=== PATIENT | female | born 1970 | race Caucasian/White ===

== ENCOUNTER 2022-11-02 17:20 | Emergency (ER) | payer OTHER, SELFPAY ==
--- NOTE | ~2022-11-02 | CT_ITS ---
EXAMINATION: CT brain wo con DATE: 11/02/2022 18:12 INDICATION: aloc . TECHNIQUE: Computed tomography (CT) of the head was performed without intravenous contrast. The mA wa s adjusted according to patient size. Iterative reconstruction technique was employed. The dose-lengt h product was 983.67 mGy-cm. COMPARISON: None. FINDINGS: Moderate motion artifact was present requiring additional imaging, with mild persistent motion artifa ct. No acute intracranial hemorrhage or extra-axial fluid collection. No hydrocephalus, mass, or herniation. Pituitary enlargement. No acute ischemic infarct. Unremarkable dural venous sinus attenuation. No acute osseous abnormality. The aerated spaces are clear. IMPRESSION: No acute intracranial process. Pituitary enlargement, consider outpatient MR of the pituitary for fur ther evaluation Reviewed, dictated and finalized at location K. IMPRESSION: No acute intracranial process. Pituitary enlargement, consider outpatient MR of the pituitary for further evaluation
[2022-11-02 17:29] VITALS: TEMP 36.5
--- NOTE | 2022-11-02 17:34 | ECG_ITS ---
Measurements Intervals [place] Rate: 68 P: 45 IA: 235 QRS: 55 QRSD: 97 T: 65 QT: 407 QTc: 436 Interpretive Statements SINUS RHYTHM WITH FIRST DEGREE AV BLOCK NO PREVIOUS ECG AVAILABLE FOR COMPARISON Electronically Signed On 11-03-2022 12:52:00 CDT by Jovanni Levine M.D.
[2022-11-02 17:56] LABS: Basophils Absolute Auto 0.1 K/mm3 (0.0-0.1); Basophils Percent Auto 0.6 % (0.2-1.2); Eosinophils Absolute Auto 0.2 K/mm3 (0-0.3); Eosinophils Percent Auto 1.8 % (0-4.4); Hemoglobin 13.2 g/dL (12.0-15.0); Immature Granulocyte Absolute 0.03 K/mm3 (0.00-0.031); Immature Granulocyte Percent A 0.3 % (0-0.5); Lymphocytes Absolute Auto 2.58 K/mm3 (0.9-3.2); Lymphocytes Percent Auto 23.6 % (18.3-44.2); Mean Corpuscular HGB Conc 33.8 g/dl (32-36); Mean Corpuscular Hemoglobin 33.4 pg (26-34); Mean Corpuscular Volume 98.7 fl (80-100); Mean Platelet Volume 10.2 fl (7.4-10.4); Monocytes Absolute Auto 1.2 K/mm3 (0.1-0.6); Neutrophils Absolute Auto 6.9 K/mm3 (1.3-6.7); Neutrophils Percent Auto 62.7 % (45.5-73.1); Platelet Count Result 306 k/mm3 (150-375); Red Blood Count 3.95 M/mm3 (4.2-5.4); Red Cell Distribution Width 12.3 % (11.5-14.5)
[2022-11-02 18:08] LABS: Alanine Aminotransferase 34 U/L (6-35); Albumin Level 4.9 g/dL (3.5-5.1); Alkaline Phosphatase 80 U/L (38-126); Anion Gap 14 mmol/L (8-16); Aspartate Amino Transferase 42 U/L (14-36); Bilirubin,Total 0.4 mg/dL (0.2-1.3); Blood Urea Nitrogen 17 mg/dL (7-17); Calcium 9.3 mg/dL (8.4-10.2); Carbon Dioxide 24 mmol/L (22-30); Chloride 101 mmol/L (98-107); Estimated Glomerular Filt Rate 58; Glucose 73 mg/dL (65-110); Potassium 3.3 mmol/L (3.4-5.0); Sodium 139 mmol/L (137-145)
[2022-11-02 18:22] LABS: Lactic Acid Reflex 5.1 mmol/L (0.7-2.0)
[2022-11-02 18:29] LABS: Ethanol 407 mg/dL (<10)
--- NOTE | 2022-11-02 19:30 | PC.NURSE ---
Addendum entered by Jesús Hudson RN 11/02/22 19:56: Patient had slid herself to the edge of bed and once she was helped back to bed the patient began getting combative with nursing and tech staff. Patient was then put into soft restraints. Original Note: Patient slid herself to the edge
[2022-11-02] MEDS: OLANZapine 10 MG, WATER, STERILE FOR INJECTION 2.1 ML IM (19:39)
--- NOTE | 2022-11-02 20:00 | PC.NURSE ---
Patient yelling in room, was able to get out of one of the soft restraints and attempting to swing and hit her arms against the rails of the stretcher. This nurse and 2 techs went into room to assist patient back into bed and patient became more aggressive and verbally assaulting staff as well as attempting to harm staff by hitting, kicking, spitting and biting. More staff came to assist patient and patient had pulled out IV. ERP notified and verbal orders obtained to give meds. Patient continued to be verbally aggressive, and attempting to harm staff. Patient placed back in soft restraints.
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
[2022-11-02] MEDS: LORazepam INJ (*CRX) 2 MG/ML VIAL IV PUSH (20:15)
[2022-11-02] MEDS: SODIUM CHLORIDE 0.9% IV 1,000 ML 999 ML IV CONT (20:38)
[2022-11-02 20:54] LABS: Reflex Lactic Acid Yes or No Add Lactic
--- NOTE | 2022-11-02 20:58 | PC.NURSE ---
Per Dr. Allen wait until 22:00 to collect the ethanol and lactic
[2022-11-02 21:31] VITALS: PULSE 76; RESP 16; O2SAT 94; O2SAT 95
[2022-11-02 22:55] VITALS: PULSE 73; RESP 14; O2SAT 100
[2022-11-02 22:55] LABS: Lactic Acid 1.8 mmol/L (0.7-2.0)
[2022-11-02 23:41] LABS: Ethanol 338 mg/dL (<10)
[2022-11-02 23:42] LABS: Acetaminophen < 10 ug/mL (10-30); Salicylate < 1.0 mg/dL (2-20)
[2022-11-03] MEDS: LORazepam INJ (*CRX) 2 MG/ML VIAL IV PUSH (00:45)
--- NOTE | 2022-11-03 00:45 | PC.NURSE ---
Patient yelling and thrashing and screaming in room. Patient screaming I want to fucking , I don't want to live anymore!! Patient trashing and attempting to hit, kick, spit and bite at staff. Attempted to redirect patient, but patient kept on yelling and screaming let me out of this fucking place, they're trying to kill me! I wan't to fucking !!! Patient continues to thrash, yelling and attemping to harm staff. Security at bedside with 2 other RNs, KRISTAL gonsales and .
[2022-11-03] MEDS: HALOPERIDOL LACTATE 5 MG/ML VIAL IM (01:01)
--- NOTE | 2022-11-03 01:03 | PC.NURSE ---
Patient awoke and became violent. Started trying to hit, bite, and spit at staff. 2mg Ativan IVP given per Dr. Bailey via verbal read back order. Patient continues to make threats towards staff.
[2022-11-03 01:08] VITALS: O2SAT 98
--- NOTE | 2022-11-03 02:23 | PC.NURSE ---
Patients bed changed, placed in new gown, blanket given. Patient still aggressive, security at bedside to assist with linen change.
[2022-11-03 02:37] LABS: Amphetamine Screen Urine Negative (Negative); Barbiturate Screen Urine Negative (Negative); Benzodiazepines Screen Urine Negative (Negative); Cannabinoid Screen Urine Positive (Negative); Cocaine Screen Urine Negative (Negative); Methadone Screen Urine Negative (Negative); Opiate Screen Urine Positive (Negative); Phencyclidine Screen Urine Negative (Negative)
[2022-11-03 02:47] LABS: Influenza A QL RT-PCR Negative (Negative); Influenza B QL RT-PCR Negative (Negative); RSV RNA, RT-PCR Negative (Negative); SARS-CoV-2 RNA PCR Negative
--- NOTE | 2022-11-03 03:11 | PC.NURSE ---
Patient's came for an update and was told that patient's alcohol level was still elevated and we are waiting for that to go down. stated that the patient has left suicidal notes before and made suicidal statements before. is worried about patient coming back home and going through with a suicidal plan.
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
[2022-11-03 06:53] VITALS: TEMP 36.6
[2022-11-03 09:00] VITALS: BP 150/88; PULSE 90; RESP 16; O2SAT 99
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
--- NOTE | 2022-11-03 10:51 | PC.NURSE ---
pt refusing to have any more labs drawn, quite adamant in her refusal. pt struggling to listen to staff, wants to leave. pt asked for IV removal, wishes granted. pt in and out of room with much encouragement to return. in room with pt at this time
--- NOTE | 2022-11-03 10:52 | PC.NURSE ---
PT WALKED OUT OF ROOM AND SAT ON BENCH IN WAITING ROOM. BROUGHT HER BAG OF CLOTHES. PT WAS ESCORTED BACK TO HER ROOM AND TOLD THAT SOMEONE WILL COME AND TALK WITH HER PEG.
--- NOTE | 2022-11-03 10:53 | PC.NURSE ---
pt is a/ao x4 denied self harm or harm to others
--- NOTE | 2022-11-03 10:55 | PC.NURSE ---
PT IS UNCOOPERATIVE AT THIS TIME BUT IS ALERT AND ORIENTED X4. EMPHATICALLY DENIES FEELING SUICIDAL AT THIS TIME.
--- NOTE | 2022-11-03 10:59 | PC.NURSE ---
pt eloped from the ED with her , ambulated out of ED with steady gait. got into car with her and left the parking lot. prior to leaving the pt denied thoughts of SI/HI.
== END 2022-11-03 11:00 | disposition left against medical advice (07) ==
PROVIDERS: Emergency Medicine; Family Medicine; Emergency Provider Emergency Medicine
DX: F10.129 Alcohol abuse with intoxication, unspecified (principal); R74.02 Elevation of levels of lactic acid dehydrogenase [LDH]; R45.6 Violent behavior; Z20.822 Contact with and (suspected) exposure to COVID-19; Z85.528 Personal history of other malignant neoplasm of kidney; Y90.8 Blood alcohol level of 240 mg/100 ml or more
CPT/HCPCS: 36415; 70450; 80053; 80307; 83605; 84443; 85025; 85610; 87637; 93005; 96361; 96372; 96374; 99284; J1630; J2060; J7030